=== PATIENT | female | born 1950 | race Caucasian/White ===

== ENCOUNTER 2016-07-02 05:31 | Outpatient (CLI) | payer MEDICARE, OTHER ==
[~2016-07-02] VITALS: Ht 162.6 cm; Wt 87.1 kg
[2016-07-02] MEDS ORDERED: METF500T4 PO (13:54)
[2016-07-02] MEDS ORDERED: GLIM2TAB PO (13:54)
[2016-07-02] MEDS ORDERED: SAXA5TAB PO (13:54)
[2016-07-02] MEDS ORDERED: HYDR12.5 PO (13:54)
[2016-07-02] MEDS ORDERED: LOSA25TA21 PO (13:54)
[2016-07-02] MEDS ORDERED: CANA300T PO (13:54)
[2016-07-02] MEDS ORDERED: GABA600T2 PO (13:54)
[2016-07-02] MEDS ORDERED: ESTR1TAB24 PO (13:54)
== END 2016-07-02 15:12 ==
LOC: PREOP 05:31
PROVIDERS: ATTEND Surgery
DX: Z01.818 Encounter for other preprocedural examination (principal); K43.9 Ventral hernia without obstruction or gangrene

== ENCOUNTER 2016-07-09 06:08 | Day surgery (SDC) | payer MEDICARE, OTHER ==
[~2016-07-09] VITALS: Ht 162.6 cm; Wt 87.1 kg
[~2016-07-09 06:08] MED LIST: CANA300T PO; ESTR1TAB24 PO; GABA600T2 PO; GLIM2TAB PO; HYDR12.5 PO; LOSA25TA21 PO; METF500T4 PO; SAXA5TAB PO
[2016-07-09] MEDS ORDERED: ceFAZolin 2 GM/50 ML NS 50 ML ONE (06:16)
[2016-07-09 06:30] VITALS: BP 128/100
[2016-07-09] MEDS ORDERED: CELECOXIB 100 MG (CeleBREX) CAP PO ONE ×2 (06:45→09:45)
[2016-07-09] MEDS ORDERED: ACETAMINOPHEN 500 MG TAB (TYLENOL) PO ONE ×2 (06:45→09:45)
[2016-07-09] MEDS ORDERED: ONDANSETRON 4 MG/2 ML (SDV) Z0FRAN IV ONE (06:45)
[2016-07-09] MEDS ORDERED: PREGABALIN 75 MG (LYRICA) CAP PO ONE ×2 (06:45→09:45)
[2016-07-09] MEDS ORDERED: morphine INJ 4 MG/ML 1 ML (VIAL/SYRINGE) IV PRN (06:45)
[2016-07-09] MEDS ORDERED: oxyCODONE ER 10 MG (OxyCONTIN CR) TAB PO ONE ×3 (06:45→09:45)
[2016-07-09] MEDS ORDERED: FAMOTIDINE 20MG/2ML IV (PEPCID) IV ONE (06:45)
[2016-07-09 06:46] LABS: RED BLOOD COUNT 5.96 10^6/uL (4.35-5.85); RED CELL DISTRIBUTION WIDTH 14.6 % (10.0-14.5); WHITE BLOOD COUNT 9.9 10^3/uL (4.3-11.0)
[2016-07-09] MEDS ORDERED: PREGABALIN 75 MG (LYRICA) CAP ONE (06:46)
[2016-07-09] MEDS ORDERED: ONDANSETRON 4 MG/2 ML (SDV) Z0FRAN ONE ×3 (06:47→09:36)
[2016-07-09] MEDS: LACTATED RINGERS 1,000 ML IV PRN ×2 (06:55→08:32)
[2016-07-09] MEDS ORDERED: ceFAZolin 2 GM/NS 50 ML IV ONE (07:00)
[2016-07-09] MEDS ORDERED: BUP/EPI 0.25% 1:200,000 (MARCAINE) 30 ML VIAL ONE (07:09)
[2016-07-09] MEDS ORDERED: MIDAZOLAM 2 MG/2 ML (VERSED) VIAL ONE (07:18)
[2016-07-09] MEDS ORDERED: fentaNYL INJECTION 100 MCG/2 ML AMP ONE (07:18)
[2016-07-09] MEDS ORDERED: KETAMINE HCL 100 MG/ML 5 ML VIAL ONE (07:24)
--- NOTE | 2016-07-09 07:51 | Progress Note-Pre Operative ---
Pre-Operative Progress Note H&P Reviewed The H&P was reviewed, patient examined and no changes noted. Date H&P Reviewed: July 09, 2016 Time H&P Reviewed: 07:51 Pre-Operative Diagnosis: Ventral hernia TIA ARMENDARIZ MD July 09, 2016 7:51 am
--- NOTE | 2016-07-09 07:51 | History & Physicial ---
History of Present Illness History of Present Illness Reason for visit/HPI For robotic assisted repair of ventral hernia Date of Admission I consulted on this patient on 07/09/16 07:47 Attending Physician Tia Armendariz MD Admitting Physician Maximo Frederick MD Consult Allergies and Home Medications Allergies Coded Allergies: No Known Drug Allergies (Unverified , 07/02/16) Home Medications Canagliflozin 300 Mg Tablet, 300 MG PO DAILY, (Reported) Estradiol 1 Mg Tablet, 1 MG PO DAILY, (Reported) Gabapentin 600 Mg Tablet, 600 MG PO TID, (Reported) Glimepiride 2 Mg Tablet, 2 MG PO DAILY, (Reported) Hydrochlorothiazide 12.5 Mg Capsule, 12.5 MG PO DAILY, (Reported) Losartan Potassium 25 Mg Tablet, 25 MG PO DAILY, (Reported) Metformin HCl 500 Mg Tablet, 1,000 MG PO BID, (Reported) take 2 (500mg) tab Saxagliptin HCl 5 Mg Tablet, 5 MG PO DAILY, (Reported) Past Akaxsjh-Hhrgkw-Hyjgwp Hx Patient Social History Marrital Status: Employed/Student: retired Alcohol Use: Rarely Uses Recreational Drug Use: No Smoking Status: Former Smoker Recent Foreign Travel: No Contact w/other who traveled: No Recent Hopitalizations: No Recent Infectious Disease Expo: No Seasonal Allergies Seasonal Allergies: No Surgeries HX Surgeries: Yes (breast bx x2, ) Surgeries: Hysterectomy Respiratory Hx Respiratory Disorders: No Cardiovascular Hx Cardiovascular Disorders: Yes Cardiac Disorders: Heart Murmur Neurological Hx Neurological Disorders: Yes Neurological Disorders: Neuropathy Genitourinary Hx Genitourinary Disorders: No Gastrointestinal Hx Gastrointestinal Disorders: Yes Gastrointestinal Disorders: Abdominal Hernia Musculoskeletal Hx Musculoskeletal Disorders: Yes Musculoskeletal Disorders: Arthritis Endocrine Hx Endocrine Disorders: Yes Endocrine Disorders: Diabetes, Non-Insulin dep HEENT HX ENT Disorders: No Cancer Hx Cancer: No Psychosocial Hx Psychiatric Problems: No Integumentary HX Skin/Integumentary Disorder: No Blood Transfusions Hx Blood Disorders: No Constitutional: no symptoms reported EENTM: no symptoms reported Cardiovascular: no symptoms reported Gastrointestinal: abdominal pain (RLQ), constipation Genitourinary: no symptoms reported Musculoskeletal: no symptoms reported Skin: no symptoms reported Psychiatric/Neurological: No Symptoms Reported Physical Exam Vital Signs Vital Sign - Last 12Hours 07/09/16 06:30 Temp 98.4 Pulse 91 Resp 18 B/P (MAP) 128/100 Pulse Ox 97 O2 Delivery Room Air Capillary Refill : General Appearance: No Apparent Distress HEENT: PERRL/EOMI, Normal ENT Inspection Neck: Normal Inspection Respiratory: Lungs Clear Cardiovascular: Regular Rate, Rhythm Gastrointestinal: Non Tender, Soft, Hernia Rectal: Deferred Back: Normal Inspection Extremity: Normal Capillary Refill Neurologic/Psychiatric: Alert, Oriented x3 Skin: Warm/Dry Assessment/Plan Assessment and Plan Lady with a primary ventral hernia containing tr.colon. For robotic assisted repair with mesh. Details, iatrogenic injury to bowel, infection, recurrence etc discussed thoroughly. Willing to proceed Problems: Admission Diagnosis Ventral hernia Clinical Quality Measures DVT/VTE Risk/Contraindication: Risk Factor Score Per Nursin RFS Level Per Nursing on Admit: 4+=Very High TIA ARMENDARIZ MD July 09, 2016 7:51 am
[2016-07-09] MEDS ORDERED: LIDOCAINE PF 0.5% 50 ML (XYLOCAINE) VIAL ONE (09:35)
[2016-07-09] MEDS ORDERED: proPOfol 200 MG/20 ML (DIPRIVAN) VIAL IV ONE (09:35)
[2016-07-09] MEDS ORDERED: LACTATED RINGERS 1,000 ML IV ONE ×2 (09:35)
[2016-07-09] MEDS ORDERED: HYDROmorphone (DILAUDID) 2 MG/ML VIAL ONE (09:36)
[2016-07-09] MEDS ORDERED: morphine INJ 10 MG/ML 1ML (SYR OR VIAL) ONE (09:36)
--- NOTE | 2016-07-09 09:42 | Progress Note-Post Operative ---
Post-Operative Progess Note Surgeon (s)/Pool Finisher (s) Surgeon TIA ARMENDARIZ MD Pool Finisher: not applicable Pre-Operative Diagnosis Ventral hernia Post-Operative Diagnosis same Procedure & Operative Findings Date of Procedure 07/09/16 Procedure Preformed/Findings robotic-assisted repair with mesh Anesthesia Type Gen. Estimated Blood Loss Estimated blood loss (mL): minimal Specimens/Packing Specimens Removed none Packing: none TIA ARMENDARIZ MD July 09, 2016 9:42 am
[2016-07-09] MEDS ORDERED: NEOSTIGMINE (BLOXIVERZ ) 1 MG/1ML 10 ML VIAL ONE (09:49)
[2016-07-09] MEDS ORDERED: GLYCOPYRROLATE 0.2 MG/ML (ROBINUL) 2 ML VIAL ONE (09:49)
[2016-07-09] MEDS ORDERED: SEVOFLURANE (ULTANE) 15 ML INHAL SOLN ONE (10:07)
[2016-07-09] MEDS ORDERED: ONDANSETRON 4 MG/2 ML (SDV) Z0FRAN IVP PRN (10:15)
[2016-07-09] MEDS ORDERED: PROMETHAZINE INJ 25 MG/ML (PHENERGAN) AMP IVP PRN (10:15)
[2016-07-09] MEDS ORDERED: fentaNYL INJECTION 100 MCG/2 ML AMP IVP PRN (10:15)
[2016-07-09] MEDS ORDERED: HYDROmorphone (DILAUDID) 2 MG/ML VIAL IVP PRN (10:15)
--- NOTE | 2016-07-09 10:44 | OPERATIVE REPORT ---
DATE OF SERVICE: 07/09/2016 PREOPERATIVE DIAGNOSIS: Ventral hernia. POSTOPERATIVE DIAGNOSIS: Ventral hernia. OPERATION: Robotic-assisted repair of ventral hernia with mesh. SURGEON: Tia Armendariz MD ANESTHESIA: General. ESTIMATED BLOOD LOSS: Minimal. FLUIDS: 1300 mL of Crystalloid. TYPE OF WOUND: Type 1 (plain wound). INDICATION FOR PROCEDURE: This lady presented with symptomatic, primary ventral hernia in relation to umbilicus, containing transverse colon. She was offered minimally invasive repair with robotic assistance and mesh reinforcement. Informed consent was obtained after reviewing all the details and complications including iatrogenic bowel injury, wound infection, infection of the mesh and recurrence of the hernia. DESCRIPTION OF THE PROCEDURE: She was placed supine on the operating table and general anesthesia induced using an endotracheal tube. Two grams of Ancef were administered intravenously as prophylaxis against wound infection. Sequential compression devices were placed around the legs, to minimize the risk of venous thrombus. Abdomen was prepared and draped in the usual sterile manner. Pneumoperitoneum was established using a Veress needle introduced over the right subcostal margin, along the mid axillary line. Intraabdominal pressure was maintained at 15 mmHg, using carbon dioxide insufflation. A 12 mm trocar was placed and anatomy visualized using the three-dimensional, high-definition laparoscope associated with Da Rema system. Omentum and the mid segment of the transverse colon were trapped within the hernia. Under direct view, I placed a 12 mm trocar over the right side of the abdomen, along the mid axillary line, followed by an 8 mm cannula over the right lower quadrant. The robotic system was then docked in place. The hernia sac was incised using robotic assistance, freeing up the omentum and the transverse colon without any iatrogenic injury. The defect measured about 3 cm in diameter. It was closed primarily using a 0 V-Lock, nonabsorbable suture with robotic assistance without tension. Intraabdominal pressure was reduced to 11 mmHg during this process with 2 mm tension on the suture line. A few loops of small bowel and omentum adherent to the abdominal wall along the left lower quadrant were also taken down by sharp dissection to facilitate reinforcement with the mesh. A polypropylene mesh measuring 15.4 cm in diameter was chosen. It was held up using a self-retaining balloon and the edges were secured with 2-0 V-Lock suture with robotic assistance. A small hematoma along the left upper quadrant was controlled using a V-Lock suture, in a transfixation pattern. Subsequently, hemostasis was adequate and the operation concluded. Once the trocars were removed, incisions were closed using 4-0 Vicryl in a subcuticular fashion. Marcaine 0.025% with epinephrine was infiltrated along the incisions, both preemptively and at the conclusion of the operation. She tolerated the procedure well, was extubated in the operating room and taken to the recovery room in stable condition. [place], sponges and instruments were correct at the end of the operation. Job ID: [id number] DocumentID: [id number] Dictated Date: 07/09/2016 09:38:51 Spouter Date: 07/09/2016 10:42:56 Dictated By: TIA ARMENDARIZ MD MTDD
[2016-07-09 11:00] VITALS: BP 155/66
[2016-07-09] MEDS: morphine INJ 4 MG/ML 1 ML (VIAL/SYRINGE) IV PRN ×2 (11:44→16:37)
[2016-07-09] MEDS ORDERED: KETOROLAC 15 MG/ML VIAL IV SCH (12:00)
[2016-07-09] MEDS ORDERED: CATHETER FLUSH 10 ML SYR IV PRN (13:00)
[2016-07-09] MEDS: inSUlin ASPART (NovoLOG) 1 UNIT/0.01 ML (CHARGE PER UNIT) SC SCH ×3 (13:23→21:00)
[2016-07-09] MEDS ORDERED: OXYC-197 PO ×2 (13:40→13:41)
--- NOTE | 2016-07-09 13:43 | Discharge Inst-Simple/Standard ---
Discharge Inst-Standard Discharge Medications New, Converted or Re-Newed RX: RX on Chart Patient Instructions/Follow Up Plan of Care/Instructions/FU: dressings off in a.m. Abdominal binder. Follow-up in 4 weeks Activity as Tolerated: No Goal: no lifting over 20 pounds Discharge Diet: No Restrictions TIA ARMENDARIZ MD July 09, 2016 1:43 pm
[2016-07-09] MEDS: LACTATED RINGERS 1,000 ML IV SCH ×2 (14:12→23:33)
[2016-07-09] MEDS: CATHETER FLUSH 10 ML SYR IV SCH ×2 (14:18→22:28)
[2016-07-09 16:05] VITALS: BP 146/67
[2016-07-09 16:09] VITALS: BP 146/67
[2016-07-09 19:27] VITALS: BP 131/61
[2016-07-09 20:00] VITALS: BP 131/61
[2016-07-10 00:17] VITALS: BP 142/60
[2016-07-10 04:04] VITALS: BP 155/64
[2016-07-10] MEDS: CATHETER FLUSH 10 ML SYR IV SCH ×3 (06:15→21:51)
[2016-07-10] MEDS: inSUlin ASPART (NovoLOG) 1 UNIT/0.01 ML (CHARGE PER UNIT) SC SCH ×4 (06:15→21:51)
[2016-07-10] MEDS ORDERED: ONDANSETRON 4 MG/2 ML (SDV) Z0FRAN IVP PRN ×2 (06:45→07:00)
[2016-07-10] MEDS: morphine INJ 4 MG/ML 1 ML (VIAL/SYRINGE) IV PRN (06:58)
[2016-07-10 08:19] VITALS: BP 148/67
[2016-07-10 12:00] VITALS: BP 146/67
--- NOTE | 2016-07-10 12:21 | Progress Note-Standard ---
Standard Progress Note Progress Notes/Assess & Plan Progress/Assessment & Plan 07/10/16: Pain control less optimal. Vitals stable, incisions dry. Would benefit from another day in hospital Final Diagnosis Ventral hernia TIA ARMENDARIZ MD July 10, 2016 12:21 pm
[2016-07-10] MEDS ORDERED: fentaNYL INJECTION 100 MCG/2 ML AMP IVP PRN (12:30)
--- NOTE | 2016-07-10 13:20 | Anesthesia-General Post-Op ---
General Patient Condition Mental Status/LOC: Same as Preop Cardiovascular: Satisfactory Nausea/Vomiting: Absent Respiratory: Satisfactory Pain: Controlled Complications: Absent Post Op Complications Complications None Follow Up Care/Instructions Patient Instructions None needed. Anesthesia/Patient Condition Patient Condition Patient is doing well, no complaints, stable vital signs, no apparent adverse anesthesia problems. No complications reported per nursing. PIERRE THOMSON CRNA July 10, 2016 13:20
[2016-07-10 16:00] VITALS: BP 127/75
[2016-07-10] MEDS: LOSARTAN 25 MG (COZAAR) TAB PO SCH (17:07)
[2016-07-11 00:20] VITALS: BP 107/63
[2016-07-11] MEDS: inSUlin ASPART (NovoLOG) 1 UNIT/0.01 ML (CHARGE PER UNIT) SC SCH (06:12)
[2016-07-11] MEDS: CATHETER FLUSH 10 ML SYR IV SCH (06:12)
[2016-07-11 08:00] VITALS: BP 128/76
[2016-07-11] MEDS: LOSARTAN 25 MG (COZAAR) TAB PO SCH (08:06)
[2016-07-11 10:45] VITALS: BP 128/76
--- NOTE | 2016-07-11 10:53 | Progress Note-Standard ---
Standard Progress Note Progress Notes/Assess & Plan Progress/Assessment & Plan 07/10/16: Pain control less optimal. Vitals stable, incisions dry. Would benefit from another day in hospital 07/11/16:pain control better. Could be discharged home Final Diagnosis ventral hernia TIA ARMENDARIZ MD July 11, 2016 10:53 am
== END 2016-07-11 10:54 | disposition home or self-care (01) ==
LOC: SDC 06:08 → 4TH 10:55 → ENPENDDIS 07-10 10:00 → SDC 07-11 10:54
PROVIDERS: ATTEND Surgery
DX: K43.9 Ventral hernia without obstruction or gangrene (principal); E11.9 Type 2 diabetes mellitus without complications; Z87.891 Personal history of nicotine dependence; I10 Essential (primary) hypertension; Z79.899 Other long term (current) drug therapy
CPT/HCPCS: 36415; 82962; 85027; 87081; 94664

== ENCOUNTER → 2021-07-22 | Outpatient (CLI) | payer MEDICARE, OTHER ==
[~2021-07-22] MED LIST changes: -GABA600T2 PO; +GBPN600T PO; -GLIM2TAB PO; +GLIM2TAB4 PO; -LOSA25TA21 PO; +LOSA25TA41 PO; +METF-397 PO; -METF500T4 PO; +OXYC1TAB87 PO
== END ==
LOC: LABNPT 12:43
DX: R42 Dizziness and giddiness (principal)
CPT/HCPCS: 82375

== ENCOUNTER 2022-10-15 06:25 | Outpatient (CLI) | payer MEDICARE, OTHER ==
[~2022-10-15] VITALS: Ht 162.6 cm; Wt 96.2 kg
[2022-10-15] MEDS ORDERED: SEMA1PEN3 SQ (15:14)
[2022-10-15] MEDS ORDERED: DULO60CA59 PO (15:14)
[2022-10-15] MEDS ORDERED: INSU100V37 SQ (15:14)
[2022-10-15] MEDS ORDERED: BACL10TA PO (15:14)
== END 2022-10-15 15:27 | disposition home or self-care (01) ==
LOC: PREOP 06:25
PROVIDERS: ATTEND Surgery
DX: Z01.818 Encounter for other preprocedural examination (principal)

== ENCOUNTER 2022-10-27 10:40 | Day surgery (SDC) | payer MEDICARE, OTHER ==
[~2022-10-27] VITALS: Ht 162 cm; Wt 96.2 kg
[~2022-10-27 10:40] MED LIST changes: +BACL10TA PO; +DULO60CA59 PO; +INSU100V37 SQ; +SEMA1PEN3 SQ
[2022-10-27] MEDS ORDERED: LACTATED RINGERS 1,000 ML 1,000 ML IV STA (10:43)
[2022-10-27] MEDS ORDERED: HURRICAINE EXT TUBE (BENZOCAINE) XX PRN (10:45)
--- NOTE | 2022-10-27 10:50 | Progress Note-Pre Operative ---
Pre-Operative Progress Note Date of Available H&P: Oct 14, 2022 Date H&P Reviewed: Oct 27, 2022 Time H&P Reviewed: 10:48 History & Physical: H&P Reviewed, Patient Examed, No changes noted Pre-Operative Diagnosis: Nausea, Change in bowel habits, rectal bleed DASIA ENGEL DO Oct 27, 2022 10:49
[2022-10-27 11:00] VITALS: BP 140/80
[2022-10-27 12:15] VITALS: BP 109/53
[2022-10-27 12:20] VITALS: BP 109/53
--- NOTE | 2022-10-27 12:43 | Anesthesia-General Post-Op ---
MAC Patient Condition Mental Status/LOC: Same as Preop Cardiovascular: Satisfactory Nausea/Vomiting: Absent Respiratory: Satisfactory Pain: Controlled Complications: Absent Post Op Complications Complications None Follow Up Care/Instructions Patient Instructions None needed. Anesthesiology Discharge Order Discharge Order Patient is doing well, no complaints, stable vital signs, no apparent adverse anesthesia problems. No complications reported per nursing. SHONA RIVERO DO Oct 27, 2022 12:43
--- NOTE | 2022-10-27 12:45 | Progress Note-Post Operative ---
Post-Operative Progess Note Surgeon (s)/Logistician (s) Surgeon DASIA ENGEL DO Logistician: Mushtaq Mayes, MSIII Pre-Operative Diagnosis Nausea, Change in bowel habits, rectal bleed Post-Operative Diagnosis Gastritis Hiatal hernia Internal hemorrhoids Procedure & Operative Findings Date of Procedure 10/27/22 Procedure Performed/Findings EGD with biopsy Colonoscopy PROCEDURE NOTE: After informed consent was obtained, the patient was brought to the endoscopy suite, placed in bed in left lateral decubitus position. She was administered IV sedation by the [employer] who then monitored vitals the entire time, heart rate, blood pressure and pulse ox and the scope was inserted down the mouth through the esophagus into the stomach. On the way down, noted some mild esophagitis, took a picture, pushed into the stomach, pushed past the antrum into the duodenum. Duodenum looked good. Pulled back and did a biopsy of antrum, then retroflexed the scope, saw small grade II AFS hiatal hernia, took a picture of this and then pulled the scope into the GE junction, I took another picture of the hiatal hernia and then did a biopsy of the GE junction. Pushed the scope back into the stomach, suctioned all the air out of the stomach. At this point pulled the scope up the esophagus and out the mouth. Switched camera, switched gloves, went down below and started the colonoscopy. Pushed all the way to about 130 cm and pushed into the cecum, took a picture of appendiceal orifice and noted the ileocecal valve. Then slowly withdrew the scope insufflating to look circumferentially at the gibson starting in the cecum, up the ascending colon to the hepatic flexure, then down the transverse colon, splenic flexure, into the descending colon down into the sigmoid and then into the rectal vault and retroflexed the scope. Took a picture of the internal hemorrhoids. The patient tolerated the procedure and she recovered in the endoscopy suite. Recommended for repeat colonoscopy in 10 years Anesthesia Type IV sedation by Anesthesia Estimated Blood Loss Estimated blood loss (mL): scant Specimens/Packing Specimens Removed antral bx GE jxn bx DASIA ENGEL DO Oct 27, 2022 12:44
--- NOTE | 2022-10-27 12:46 | Endoscopy Discharge Instruct ---
Endo Procedure/Findings Findings 1.: Gastritis 2.: Hiatal Hernia 3.: Internal Hemorrhoids Discharge Instructions - Activity: You might feel a little sleepy until tomorrow. This is due to the medicine you received to relax you. Until tomorrow, you should: NOT drive a car, operate machinery or power tools. NOT drink any alcoholic beverages. NOT make any important decisions or sign importortant papers. Do not return to work until tomorrow, unless otherwise instructed. Resume previous activities tomorrow. Diet: Start by taking liquids. If you tolerate liquids, advance to solid food. 1.: EGD in 3 years 2.: Colonscopy in 10 years Notify Physician - If you experience excessive bleeding, unusual abdominal pain, fever, or chest pain, contact your doctor immediately. Follow-Up: Other Follow up in my office in one week DASIA ENGEL DO Oct 27, 2022 12:45
[2022-10-27 12:50] VITALS: BP 127/68
[2022-10-27 13:25] VITALS: BP 127/68
== END 2022-10-27 13:25 | disposition home or self-care (01) ==
LOC: ENDO 10:40
PROVIDERS: ATTEND Surgery
DX: K64.8 Other hemorrhoids (principal); K29.70 Gastritis, unspecified, without bleeding; K44.9 Diaphragmatic hernia without obstruction or gangrene; K20.90 Esophagitis, unspecified without bleeding; Z87.891 Personal history of nicotine dependence; E66.9 Obesity, unspecified; Z68.36 Body mass index [BMI] 36.0-36.9, adult
CPT/HCPCS: 88305